=== PATIENT | male | born 1940 | race Caucasian/White ===

== ENCOUNTER 2018-10-12 11:00 | Day surgery (SDC) | payer MEDICARE ==
[2018-10-09 10:25] VITALS: BMI 27.2
[~2018-10-12 11:00] MED LIST: DEXAMETHASONE SOD PHOSPHATE 10 MG/ML 1 ML VIAL IV ONE; HYDROmorphone 0.5 MG/0.5 ML SYRINGE IVP PRN; LACTATED RINGERS 1,000 ML IV SCH; MIDAZOLAM 2 MG/2 ML VIAL IV PRN; ONDANSETRON 4 MG/2 ML VIAL IVP ONE
[2018-10-12] MEDS ORDERED: SODIUM CHLORIDE 0.9% 1,000 ML IV ONE (12:01)
[2018-10-12] MEDS ORDERED: LIDOCAINE 1% 20 ML VIAL (10MG/ML) FOR IV START INTRADERMA ONE (12:02)
[2018-10-12 12:13] LABS: Glucose,Whole Blood 130 mg/dL (75-99)
--- NOTE | 2018-10-12 13:23 | P.ANPRN ---
Procedure Note - Anesthesia - Nerve Block Performed Left Supraclavicular Single Time Out Performed: Yes Date of Procedure: 10/12/18 Procedure Start Time: 12:28 Procedure Stop Time: 12:42 Location of Patient Procedure: PreOp Indication: Acute Post-Operative Pain, Requested by physician Sedation Type: Sedate with meaningful contact maintained Preparation: Sterile Prep, Sterile Dressing Position: Sitting Catheter: None Needle Types: Pajunk Needle Gauge: 20 Technique: Ultrasound Injectate: 0.5% Ropivacaine (see comment for volume) (30 ml) Blood Aspirated: No Pain Paresthesia on Injection Noted: No Resistance on Injection: Normal Events: Uneventful and Well Tolerated
[2018-10-12] MEDS ORDERED: PROTAMINE SULFATE 10 MG/ML 5 ML VIAL IV ONE (13:25)
[2018-10-12] MEDS ORDERED: MIDAZOLAM 2 MG/2 ML VIAL ONE (13:25)
[2018-10-12] MEDS ORDERED: HEPARIN SODIUM,PORCINE 5,000 UNIT/ML 1 ML VIAL ONE (13:25)
[2018-10-12] MEDS ORDERED: GELATIN SPONGE,ABSORB (SMALL) 1 EACH SPONGE TOPICAL ONE (15:27)
[2018-10-12] MEDS ORDERED: THROMBIN (BOVINE) 5,000 UNIT VIAL TOPICAL ONE (15:27)
[2018-10-12 16:02] VITALS: TEMP 97.1
--- NOTE | 2018-10-12 16:04 | P.OP ---
Date of Procedure: 10/12/18 Preoperative Diagnosis: Chronic kidney disease stage V Postoperative Diagnosis: Same Procedure(s) Performed: Left upper extremity loop arteriovenous graft placement Implants: 4-7 mm Baraga propaten graft Anesthesia: regional Surgeon: Taz Shafer Estimated Blood Loss (ml): 5 Pathology: none sent Condition: stable Disposition: PACU Indications for Procedure: 77-year-old gentleman with chronic kidney disease was sent to the office for planning of left upper extremity fistula versus graft. Patient had bilateral upper extremity vein mapping which demonstrated less then 2 mm veins distal to the elbow and therefore a loop AV graft was chosen to be placed in the forearm. Patient presents to the operative suite for such procedure. Description of Procedure: After written informed consent was obtained the patient all risks benefits and competitions were described patient is brought to the operative suite and laid in a supine position with the left arm outstretched on an armboard. The area of the arm was then prepped and draped in usual sterile fashion after appropriate anesthetic was performed per the anesthesiologist. A timeout was performed in normal fashion antibiotics were administered prior to incision. A transverse incision was then created just distal to the elbow and dissection was carried down to the antecubital vein and this was dissected free in a circumferential manner. Proximal and distal control was obtained with vessel loops. Attention was then placed to the artery and the brachial artery was then dissected free in a circumferential manner and controlled with vessel loops for the proximal and distal aspect. A tunnel was then created in a loop fashion with a counterincision made in the forearm and a 4-7 mm Baraga propatent graft was tunneled in a loop fashion. Patient was then administered heparin. Arterial anastomosis was then performed after arteriotomy was created in the brachial artery and extended with Pott Ortiz scissors. We 4 mm aspect of the graft was then spatulated in normal fashion and anastomosis was created with 6-0 Prolene suture in a running fashion. Control was then released into the graft revealing good pulsatile blood flow. Distal control of the artery was then released. Assessment of the radial artery demonstrated good pulse. The anastomosis was then performed. Venotomy was created with 11 blade scalpel and extended with Pott Ortiz scissors. A 7 mm aspect of the graft was then spatulated in normal fashion and anastomosis was created with 6-0 Prolene suture in a running fashion. Prior to last sutures being placed control was released revealing good backbleeding from the vein. The graft was flushed with heparin saline. Control was then released revealing good pulsatile blood flow within the vein with a good palpable thrill noted. Hemostasis was then assured with Gelfoam and thrombin. Incisions were then closed in a multilayer fashion. Skin was cleansed and dressings were placed. The patient tolerated the procedure well and was sent to PACU for recovery. Plan - Discharge Summary Discharge Rx Participant: No New Discharge Prescriptions: No Action Levothyroxine Sodium 100 mcg PO QAM Furosemide [Lasix] 80 mg PO BID Cyanocobalamin (Vitamin B-12) [Vitamin B-12] 1,000 mcg PO QAM amLODIPine [Norvasc] 10 mg PO QAM Ferrous Sulfate [Iron] 325 mg PO QAM Carvedilol 25 mg PO BID Insulin Detemir [Levemir Flextouch] 17 units SQ QAM Ergocalciferol (Vitamin D2) [Vitamin D2] 50,000 unit PO WEEKLY Discharge Medication List Carvedilol 25 mg PO BID 10/09/18 [History] Cyanocobalamin (Vitamin B-12) [Vitamin B-12] 1,000 mcg PO QAM 10/09/18 [History] Ergocalciferol (Vitamin D2) [Vitamin D2] 50,000 unit PO WEEKLY 10/09/18 [Histo ry] Ferrous Sulfate [Iron] 325 mg PO QAM 10/09/18 [History] Furosemide [Lasix] 80 mg PO BID 10/09/18 [History] Insulin Detemir [Levemir Flextouch] 17 units SQ QAM 10/09/18 [History] Levothyroxine Sodium 100 mcg PO QAM 10/09/18 [History] amLODIPine [Norvasc] 10 mg PO QAM 10/09/18 [History]
[2018-10-12 17:10] LABS: Glucose,Whole Blood 99 mg/dL (75-99)
[2018-10-12 17:15] VITALS: RESP 16
[2018-10-12 17:24] VITALS: BP 157/66
[2018-10-12 17:26] VITALS: PULSE 60
== END 2018-10-12 17:42 | disposition home or self-care (01) ==
LOC: OR 11:00
PROVIDERS: ATTEND Surgery
DX: I12.0 Hypertensive chronic kidney disease with stage 5 chronic kidney disease or end stage renal disease (principal); E11.22 Type 2 diabetes mellitus with diabetic chronic kidney disease; N18.5 Chronic kidney disease, stage 5; Z99.2 Dependence on renal dialysis; Z79.4 Long term (current) use of insulin; I25.10 Atherosclerotic heart disease of native coronary artery without angina pectoris; E07.9 Disorder of thyroid, unspecified; Z87.891 Personal history of nicotine dependence; Z95.5 Presence of coronary angioplasty implant and graft; Z79.890 Hormone replacement therapy; Z79.899 Other long term (current) drug therapy
CPT/HCPCS: 36830; L8670; J2250; J2720; J1644; J0690; J2405

== ENCOUNTER → 2018-10-31 | Outpatient (CLI) | payer MEDICARE ==
[2018-10-31 14:06] LABS: HCT 26.7 % (39.0-53.0); HGB 8.4 gm/dL (13.0-17.5); Hypochromasia Slight; MCH 27.7 pg (25.0-35.0); MCHC 31.3 g/dL (31.0-37.0); MCV 88.6 fL (80.0-100.0); Mean Platelet Volume 7.7; Platelet Count 173 k/uL (150-450); RBC 3.02 m/uL (4.30-5.90); RDW 15.8 % (11.5-15.5); WBC 7.1 k/uL (3.8-10.6)
[2018-10-31 14:14] LABS: African American GFR (CKD) 9 (>60 ml/min/1.73 sqM); Anion Gap 12 mmol/L; Blood Urea Nitrogen 70 mg/dL (9-20); Calcium 8.4 mg/dL (8.4-10.2); Carbon Dioxide 23 mmol/L (22-30); Chloride 109 mmol/L (98-107); Glucose 124 mg/dL (74-99); Non-African American GFR(CKD) 8 (>60 ml/min/1.73 sqM); Potassium 3.9 mmol/L (3.5-5.1); Sodium 144 mmol/L (137-145)
[2018-10-31 19:01] LABS: Iron Saturation 9.03 (15.00-50.00)
== END | disposition home or self-care (01) ==
LOC: LABWHC1 12:51
PROVIDERS: ATTEND Internal Medicine Nephrology
DX: N18.4 Chronic kidney disease, stage 4 (severe) (principal); D63.1 Anemia in chronic kidney disease
CPT/HCPCS: 36415; 80048; 83540; 83550; 85027

== ENCOUNTER → 2018-11-28 | Outpatient (CLI) | payer MEDICARE ==
[2018-11-28 15:01] LABS: Anisocytosis Slight; Basophils # (A) 0.1 k/uL (0-0.2); Basophils % (A) 1 %; Eosinophils # (A) 0.5 k/uL (0-0.7); Eosinophils % (A) 9 %; HCT 27.7 % (39.0-53.0); HGB 8.5 gm/dL (13.0-17.5); Hypochromasia Marked; Lymphocytes # (A) 0.6 k/uL (1.0-4.8); Lymphocytes % (A) 10 %; MCH 28.1 pg (25.0-35.0); MCHC 30.5 g/dL (31.0-37.0); MCV 92.1 fL (80.0-100.0); Mean Platelet Volume 7.9; Monocytes # (A) 0.4 k/uL (0-1.0); Monocytes % (A) 6 %; Neutrophils % (A) 72 %; Platelet Count 134 k/uL (150-450); RBC 3.01 m/uL (4.30-5.90); RDW 16.7 % (11.5-15.5); WBC 5.6 k/uL (3.8-10.6)
[2018-11-28 18:43] LABS: Iron Saturation 7.3 (15.00-50.00)
[2018-11-28 20:50] LABS: African American GFR (CKD) 8.3 (60.0-200.0); Anion Gap 12.9 mmol/L (4.00-12.00); BUN/Creat Ratio 13.97 Ratio (12.00-20.00); Calcium 8.3 mg/dL (8.7-10.3); Carbon Dioxide 17.1 mmol/L (21.6-31.8); Potassium 5.4 mmol/L (3.5-5.5)
== END | disposition home or self-care (01) ==
LOC: LABWHC1 13:55
PROVIDERS: ATTEND Internal Medicine Nephrology
DX: N18.5 Chronic kidney disease, stage 5 (principal); D63.1 Anemia in chronic kidney disease
CPT/HCPCS: 36415; 80048; 83540; 83550; 85025